=== PATIENT | female | born 1955 | race Caucasian/White ===

== ENCOUNTER 2017-09-07 11:23 | Emergency (ER) | payer BC ==
[~2017-09-07] VITALS: Ht 162.6 cm; Wt 50.0 kg
[~2017-09-07 11:23] MED LIST: CALC1TAB23 PO; CARDIO PLUS PO; CLOR7.5T3 PO; DHA100CA PO; TAB-TAB PO; VESI5TAB PO; VITAMIN B12 SPRAY PO; VITAMIN D PO
[2017-09-07 11:26] VITALS: BP 115/66; PULSE 86; RESP 18; TEMP 98.2; O2SAT 97
[2017-09-07 12:20] LABS: AUTOMATED NEUTROPHIL # 2.8 TH/MM3 (1.8-7.7); BASOPHIL % 0.8 % (0.0-2.0); EOSINOPHIL # 0.1 TH/MM3 (0-0.4); EOSINOPHIL % 2.6 % (0.0-4.0); HEMATOCRIT 38.6 % (35.0-46.0); HEMOGLOBIN 13.5 GM/DL (11.6-15.3); LYMPH % 28.5 % (9.0-44.0); LYMPHOCYTE # 1.3 TH/MM3 (1.0-4.8); MEAN CELL VOLUME 84.9 FL (80.0-100.0); MEAN CORPUSCULAR HEMOGLOBIN 29.6 PG (27.0-34.0); MEAN CORPUSCULAR HGB CONC 34.8 % (32.0-36.0); MEAN PLATELET VOLUME 6.9 FL (7.0-11.0); MONO % 5.9 % (0.0-8.0); MONOCYTE # 0.3 TH/MM3 (0-0.9); NEUT % 62.2 % (16.0-70.0); PLATELET COUNT 239 TH/MM3 (150-450); RED BLOOD COUNT 4.55 MIL/MM3 (4.00-5.30); RED CELL DISTRIBUTION WIDTH 13.1 % (11.6-17.2); WHITE BLOOD COUNT 4.5 TH/MM3 (4.0-11.0)
[2017-09-07 12:24] LABS: BILIRUBIN, URINE NEG (NEG); BLOOD, URINE NEG (NEG); GLUCOSE,URINE NEG (NEG); HYALINE CAST, URINE 5 /lpf (RARE); KETONE, URINE NEG (NEG); MUCUS URINE FEW /lpf (OCC); NITRITE,URINE NEG (NEG); SQUAMOUS EPITHELIAL CELL URINE 1 /hpf (0-5); URINE COLOR YELLOW (YELLW/STRAW); URINE LEUKOCYTE ESTERASE NEG (NEG)
[2017-09-07 12:57] LABS: ALBUMIN 4.2 GM/DL (3.4-5.0); ALKALINE PHOSPHATASE 67 U/L (45-117); ALT (GPT) 15 U/L (10-53); AST (GOT) 11 U/L (15-37); BICARBONATE 28.7 MEQ/L (21.0-32.0); BLOOD UREA NITROGEN 19 MG/DL (7-18); CALCIUM 9.6 MG/DL (8.5-10.1); CHLORIDE 105 MEQ/L (98-107); CREATININE 0.72 MG/DL (0.50-1.00); GLOMERULAR FILTRATION RATE 83 ML/MIN (>89); GLUCOSE,RANDOM 91 MG/DL (74-106); SODIUM (NA) 141 MEQ/L (136-145); TOTAL BILIRUBIN ADULT 0.6 MG/DL (0.2-1.0); TOTAL PROTEIN 7.3 GM/DL (6.4-8.2)
--- NOTE | 2017-09-07 14:28 | PD ---
HPI Chief Complaint: Abdominal Pain Time Seen by Provider: 14:16 Travel History International Travel<30 days: No Contact w/Intl Traveler<30days: No Traveled to known affect area: No History of Present Illness HPI The patient was seen and examined in the presence of the nurse. This patient complains of abdominal pain. Been going on for 2 solid months. It is primarily in the epigastrium. It started after she had an endoscopy and had her esophagus "stretched". She has been eating. Eating makes it worse. No vomiting or diarrhea or fever. Symptom severity is moderate. No alleviating factors. No exacerbating factors. PFSH Past Medical History Blood Disorders: No Depression: Yes Cancer: No Cardiovascular Problems: No Diabetes: No Endocrine: No Genitourinary: No Headaches: Yes (cluster headaches 2002) Hepatitis: No Hiatal Hernia: No Immune Disorder: No Musculoskeletal: Yes (CAPSULITIS RIGHT SHOULDER) Neurologic: No Psychiatric: Yes (ANXIETY ) Reproductive: No Respiratory: Yes (HX CHEST TUBE AGE 20 FROM COLLAPSED LUNG X 3) Thyroid Disease: No ?: Not Past Surgical History Abdominal Surgery: No AICD: No Body Medical Devices: 2 DENTAL IMPLANTS Cardiac Surgery: No Gynecologic Surgery: Yes (HYSTERECTOMY, PARTIAL ) Joint Replacement: No Pacemaker: No Thoracic Surgery: No Social History Alcohol Use: No Tobacco Use: No Substance Use: No Allergies-Medications (Allergen,Severity, Reaction): Coded Allergies: azithromycin (Unverified Allergy, Severe, 12/13/16) NAUSEA & VOMITTING erythromycin base (Unverified Allergy, Severe, 12/13/16) NAUSEA & VOMITTING penicillin G (Unverified Allergy, Severe, 12/13/16) UNSURE; REACTION OCCURRED IN CHILDHOOD Reported Meds & Prescriptions Reported Meds & Active Scripts Active Reported [Vitamin D Lamy] 3 Lamy PO DAILY Multivitamin (Multivitamins) 1 Tab Tab 1 Tab PO DAILY Dha Dupuyer 3 (Docosahexaenoic Acid) 100 Mg Cap 100 Mg PO DAILY Clorazepate Dipotassium 7.5 Mg Tab 3.75 Mg PO PRN Review of Systems General / Constitutional: No: Fever Eyes: No: Visual changes HENT: No: Headaches Cardiovascular: No: Chest Pain or Discomfort Respiratory: No: Shortness of Breath Gastrointestinal: Positive: Abdominal Pain Genitourinary: No: Dysuria Musculoskeletal: No: Pain Skin: No Rash Neurologic: No: Weakness Psychiatric: No: Depression Endocrine: No: Polydipsia Hematologic/Lymphatic: No: Easy Bruising Physical Exam Narrative GENERAL: Well-nourished, well-developed patient in no apparent distress. SKIN: Focused skin assessment reveals no rash and nodules. Skin is Warm and dry. HEAD: Atraumatic. Normocephalic. EYES: Pupils equal and round. No scleral icterus. No injection or drainage. ENT: No nasal bleeding or discharge. Mucous membranes pink and moist. NECK: Trachea midline. No JVD. CARDIOVASCULAR: Regular rate and rhythm. No murmur appreciated. RESPIRATORY: No accessory muscle use. Clear to auscultation. Breath sounds equal bilaterally. GASTROINTESTINAL: Abdomen soft, non-tender, nondistended. Hepatic and splenic margins not palpable. MUSCULOSKELETAL: No obvious deformities. No clubbing. No cyanosis. No edema. NEUROLOGICAL: Awake and alert. No obvious cranial nerve deficits. Motor grossly within normal limits. Normal speech. PSYCHIATRIC: Appropriate mood and affect; insight and judgment normal. Data Data Last Documented VS Vital Signs Date Time Temp Pulse Resp B/P (MAP) Pulse Ox O2 Delivery O2 Flow Rate FiO2 09/07/17 11:26 98.2 86 18 115/66 (82) 97 Orders Orders Complete Blood Count With Diff (09/07/17 11:28) Comprehensive Metabolic Panel (09/07/17 11:28) Urinalysis - C+S If Indicated (09/07/17 11:28) Lipase (09/07/17 11:28) Electrocardiogram (09/07/17 ) Labs Laboratory Tests Test 09/07/17 11:53 09/07/17 12:16 White Blood Count 4.5 TH/MM3 Red Blood Count 4.55 MIL/MM3 Hemoglobin 13.5 GM/DL Hematocrit 38.6 % Mean Corpuscular Volume 84.9 FL Mean Corpuscular Hemoglobin 29.6 PG Mean Corpuscular Hemoglobin Concent 34.8 % Red Cell Distribution Width 13.1 % Platelet Count 239 TH/MM3 Mean Platelet Volume 6.9 FL Neutrophils (%) (Auto) 62.2 % Lymphocytes (%) (Auto) 28.5 % Monocytes (%) (Auto) 5.9 % Eosinophils (%) (Auto) 2.6 % Basophils (%) (Auto) 0.8 % Neutrophils # (Auto) 2.8 TH/MM3 Lymphocytes # (Auto) 1.3 TH/MM3 Monocytes # (Auto) 0.3 TH/MM3 Eosinophils # (Auto) 0.1 TH/MM3 Basophils # (Auto) 0.0 TH/MM3 CBC Comment DIFF FINAL Differential Comment Anion Gap 7 MEQ/L Estimat Glomerular Filtration Rate 83 ML/MIN Lipase 116 U/L Urine Color YELLOW Urine Turbidity CLEAR Urine pH 6.0 Urine Specific [place] 1.019 Urine Protein NEG mg/dL Urine Glucose (UA) NEG mg/dL Urine Ketones NEG mg/dL Urine Occult Blood NEG Urine Nitrite NEG Urine Bilirubin NEG Urine Urobilinogen LESS THAN 2.0 MG/DL Urine Leukocyte Esterase NEG Urine RBC 2 /hpf Urine WBC 1 /hpf Urine Squamous Epithelial Cells 1 /hpf Urine Hyaline Casts 5 /lpf Urine Mucus FEW /lpf Microscopic Urinalysis Comment CULT NOT INDICATED MDM Medical Decision Making Medical Screen Exam Complete: Yes Emergency Medical Condition: Yes Medical Record Reviewed: Yes Differential Diagnosis Gastritis, peptic ulcer disease, irritable bowel syndrome Narrative Course I have reviewed the patient's electronic medical record. IV placed and labs sent CBC is normal Metabolic study is normal LFTs are normal Lipase is normal Vitals are normal. Abdomen soft and benign and nontender. Etiology of her pain is unclear. It is a chronic problem over 2 months now. Stable for follow-up with her primary and GI physicians Diagnosis Primary Impression: Abdominal pain Qualified Codes: R10.84 - Generalized abdominal pain Additional Instructions: The patient was advised to follow up with their physician and return if they worsen. Med/Other Pt SpecificInfo: Other Disposition: 01 DISCHARGE HOME Condition: Stable Albert Herrera MD September 07, 2017 14:28
--- NOTE | 2017-09-09 08:50 | EKG ---
Date Performed: 09/07/2017 Time Performed: 11:42:03 PTAGE: 62 years EKG: Sinus rhythm NORMAL ECG PREVIOUS TRACING : 12/23/2014 07.39 DOCTOR: Vijay Langston Interpretating Date/Time 09/09/2017 08:47:21
== END 2017-09-07 17:06 | disposition home or self-care (01) ==
LOC: NEPD 11:23
DX: R10.84 Generalized abdominal pain (principal); F32.9 Major depressive disorder, single episode, unspecified; F41.9 Anxiety disorder, unspecified; Z79.899 Other long term (current) drug therapy; Z88.0 Allergy status to penicillin; Z88.1 Allergy status to other antibiotic agents
CPT/HCPCS: 80053; 81001; 83690; 85025; 93005; 99284